=== PATIENT | male | born 1960 | race Caucasian/White ===

== ENCOUNTER → 2017-02-26 | Outpatient (REF) ==
--- NOTE | 2017-02-26 15:26 | REP ---
PARTIAL LUMBAR SPINE, THREE VIEWS: HISTORY: Degenerative disc disease. There is no acute fracture or subluxation. The intervertebral discs are decreased in height consistent with disc degeneration. Osteophytes are present throughout the lumbar spine. IMPRESSION: Degenerative change as described above. Signed by Mir Henry MD 02/26/2017 03:27 P
== END ==
LOC: M SMT 14:02
PROVIDERS: ATTEND Internal Medicine
DX: M51.36 Other intervertebral disc degeneration, lumbar region (principal)